=== PATIENT | female | born 1930 | race Caucasian/White ===

== ENCOUNTER 2016-06-29 07:46 | Emergency (ER) | payer MEDICARE, BC ==
[2016-06-29] MEDS ORDERED: Sodium Chloride 0.9% 10 ML Syringe FLUSH PRN (08:21)
[2016-06-29] MEDS ORDERED: Morphine 4 MG/ML Syringe IVPUSH ONE (08:22)
[2016-06-29] MEDS ORDERED: Ondansetron 4 MG/2 ML SDV IVPUSH ONE (08:22)
[2016-06-29 09:00] LABS: CHLORIDE,CL 103 mmol/L (98-107); SODIUM,NA 141 mmol/L (136-145)
[2016-06-29] MEDS ORDERED: Iopamidol 612 MG/ML 100 ML Bottle IVPUSH ONE (10:37)
[2016-06-29] MEDS ORDERED: Sodium Chloride 0.9% 100 ML IV ONE (10:37)
[2016-06-29] MEDS ORDERED: Piperacillin/Tazobactam 3.375 GM in Sodium Chloride 0.9% 100 ML IV ONE (11:25)
[2016-06-29] MEDS ORDERED: Sodium Chloride 0.9% 1,000 ML IV ONE (11:31)
[2016-06-29 14:08] VITALS: BP 148/72
--- NOTE | 2016-06-30 13:14 | ER ---
Date of Service: 06/29/2016 HISTORY OF PRESENT ILLNESS: Ailyn presents to the emergency room with complaints of abdominal pain and the patient states that she has been experiencing this intermittently for the past several days. She states that she has had been unable to have a bowel movement as well. The patient does have a history of chronic constipation and diverticulitis. She has also been previously treated for diverticulitis. The patient states that she has not been experiencing any fever or chills. She has not been experiencing any nausea or vomiting. PAST MEDICAL HISTORY: 1. Diverticulitis and diverticulosis. 2. Chronic constipation. 3. Dyslipidemia. MEDICATIONS: Arimidex and Lipitor and docusate. ALLERGIES: No known drug allergies. REVIEW OF SYSTEMS: General: No fever or chills. HEENT: No sore throat, rhinorrhea, or congestion. Respiratory: No shortness of breath. Cardiac: Denies any substernal chest pain. No jaw, arm, neck, or back pain. Gastrointestinal: Complains of right lower quadrant abdominal pain. Genitourinary: Denies any dysuria. Neurologic: No myalgias or arthralgias. PHYSICAL EXAMINATION: General: This is an 85-year-old female patient, who is in mild to moderate amount of distress. Vital Signs: Blood pressure is 151/86, O2 saturations 94%, pulse rate is 73, and respiratory rate 16. Skin: Warm, pink, and dry. HEENT: Head; is normocephalic and atraumatic. Eyes; PERRLA. Extraocular movements are intact. Mouth, oral mucosa is moist. No erythema or exudate noted in the hypopharynx. Neck: Supple without masses. There is no lymphadenopathy. Lungs: Clear to auscultation. Heart: Regular rate and rhythm. Normal S1, S2. No S3, S4, murmurs, clicks, or rubs. Abdomen: Soft and tender in the right lower quadrant. There are no masses noted. There is no hepatosplenomegaly noted. Extremities: Without edema. Neurologic: She is alert and oriented and answers all questions appropriately. Her speech is fluent. Her gait is within normal limits. LABORATORY DATA: WBCs 10.2, hemoglobin is 14.0, and platelets are 239. Coags: PT is 10.8, INR is 1.0. Chemistry; sodium is 141, potassium is 3.2, chloride is 103, bicarb is 26, BUN is 9, and creatinine is 0.7. GFR is greater than 60. Glucose is 125, calcium is 9.26, lactic acid is 1.4. Total bilirubin is 0.9. AST and ALT are both 18, alkaline phosphatase is 107. Total protein is 7.5, C-reactive protein is less than 0.2, specific gravity of urine was 1.025. Urine was negative for protein and glucose. Did have a trace of ketones, and moderate occult blood. Negative for nitrates, did have small bilirubin, negative for leukocyte esterase. There did appear to be a significant amount of contamination, and there were many mucus and few bacteria. Few amorphous sediment and few renal epithelial and moderate squamous epithelial cells. CT scan of the patient's abdomen and pelvis were obtained. She did have evidence of a colonic obstruction near the junction of the descending colon and sigmoid. There was evidence of some stranding surrounding the obstruction and it appears that the obstruction is being caused by an inguinal hernia. EMERGENCY ROOM COURSE: IV access was established. She was started on normal saline at 200 mL an hour. She was given morphine 4 mg IV and Zofran 4 mg IV. On obtaining her CT results, the patient was started on Zosyn 3.375 mg IV. She remained stable in my care in the emergency room. ASSESSMENT: Inguinal hernia with a colonic obstruction. PLAN: The patient will be transferred to [facility] in [place]. I am arranging transfer for the patient at this time. The patient will be transported by [facility] ground ambulance. I will receive IV morphine or Dilaudid for pain control. All questions were answered. KADEK: 06/29/2016 11:36:04 MODL: 06/29/2016 12:09:28 /[id number]
--- NOTE | 2016-06-30 13:22 | ER ---
Date of Service: 06/29/2016 ADDENDUM: [facility] was on diversion and patient was subsequently transferred to [facility] in [place]. The surgeon who will be caring for the patient is Dr. Lee. He graciously accepted the patient in transfer. Again, the patient will be transported by [facility] ground ambulance. MWK: 06/29/2016 11:46:40 MODL: 06/29/2016 18:20:06 /[id number]
== END 2016-06-29 12:35 | disposition short-term general hospital (02) ==
LOC: VM.ED 07:46
DX: K40.30 Unilateral inguinal hernia, with obstruction, without gangrene, not specified as recurrent (principal); K59.00 Constipation, unspecified; E78.5 Hyperlipidemia, unspecified; Z79.82 Long term (current) use of aspirin; Z79.899 Other long term (current) drug therapy
CPT/HCPCS: 36415; 74177; 80053; 81001; 83605; 85025; 85610; 86140; 96365; 96375; 99285; J2270; J2405; J2543; J7030; J7050; Q9967; 99284-GF